=== PATIENT | female | born 1955 | race Caucasian/White ===

== ENCOUNTER → 2019-06-20 | Outpatient (CLI) | payer OTHER | LOC: MHCPAIN 13:33 | DX: G89.29 Other chronic pain (principal); M47.812 Spondylosis without myelopathy or radiculopathy, cervical region; R51 Headache; M54.81 Occipital neuralgia | CPT/HCPCS: G0463 ==

== ENCOUNTER → 2019-07-10 | Outpatient (CLI) | payer OTHER | LOC: MHCPAIN 14:27 | DX: M54.81 Occipital neuralgia (principal) | CPT/HCPCS: J1100 ==

== ENCOUNTER → 2019-07-25 | Outpatient (CLI) | payer OTHER | LOC: MHCPAIN 12:44 | DX: G89.29 Other chronic pain (principal); M54.81 Occipital neuralgia; R51 Headache; M47.812 Spondylosis without myelopathy or radiculopathy, cervical region | CPT/HCPCS: G0463 ==

== ENCOUNTER → 2019-11-28 | Outpatient (CLI) | payer OTHER | LOC: MHCPAIN 12:27 | DX: R51 Headache (principal); M47.812 Spondylosis without myelopathy or radiculopathy, cervical region | CPT/HCPCS: G0463 ==